=== PATIENT | male | born 1955 | race Caucasian/White ===

== ENCOUNTER 2019-11-28 18:40 | Inpatient (IN) | payer OTHER ==
[~2019-11-28] VITALS: Ht 172.7 cm; Wt 73.0 kg
[2019-11-28] MEDS ORDERED: ACETAMINOPHEN 500 MG TABLET PO ONE (19:30)
[2019-11-28] MEDS ORDERED: 0.9% SODIUM CHLORIDE 10 ML SYRINGE IVP PRN (19:30)
[2019-11-28] MEDS ORDERED: SODIUM CHLORIDE 0.9% 1,000 ML IV ONE (19:30)
[2019-11-28] MEDS ORDERED: ACETAMINOPHEN 325 MG TABLET PO PRN ×2 (19:45→20:45)
[2019-11-28] MEDS ORDERED: ONDANSETRON HCL 4 MG/2 ML VIAL IVP PRN ×2 (19:45→20:45)
[2019-11-28] MEDS ORDERED: AZITHROMYCIN 500 MG/NS 250 ML IV ONE (20:00)
[2019-11-28] MEDS ORDERED: CefTRIAXone 1 GM/DEXTROSE 50 ML IV ONE (20:00)
[2019-11-28 20:09] LABS: BASOPHILS % (AUTO) 0.4 % (0.0-2.0); EOSINOPHILS % (AUTO) 0.6 % (1.0-6.0); HEMATOCRIT 45.1 % (41-53); HEMOGLOBIN 15.4 g/dL (13.5-17.5); LYMPHOCYTES # (AUTO) 0.5 K/uL (1.0-4.8); LYMPHOCYTES % (AUTO) 6.8 % (22.0-44.0); MEAN CORPUSCULAR HEMOGLOBIN 32.7 pg (26.0-34.0); MEAN CORPUSCULAR HGB CONC 34.1 G/dL (31.0-37.0); MEAN CORPUSCULAR VOLUME 96 fL (80-100); MONOCYTES # (AUTO) 0.6 K/uL (0.1-1.0); MONOCYTES % (AUTO) 9.6 % (2.0-9.0); NEUTROPHILS # (AUTO) 5.6 K/uL (1.8-7.7); NEUTROPHILS % (AUTO) 82.6 % (40.0-70.0); PLATELET COUNT (AUTO) 273 K/uL (150-450); RED CELL DISTRIBUTION WIDTH 12.4 % (11.5-14.5)
[2019-11-28 20:24] LABS: ANION GAP 9 mmol/L (8-16); CALCIUM, TOTAL 8.5 mg/dL (8.8-10.5); CARBON DIOXIDE 27 mmol/L (22-29); CHLORIDE 101 mmol/L (98-107); CREATININE 1.06 mg/dL (0.60-1.30); GLOMERULAR FILTR. RATE CALC > 60 mL/min (>60); GLUCOSE,RANDOM 163 mg/dL (70-110); POTASSIUM 3.7 mmol/L (3.5-5.1); SODIUM SERUM 137 mmol/L (136-145); UREA NITROGEN, BLOOD 18 mg/dL (7-18)
[2019-11-28 20:29] LABS: D-DIMER 4.13 mg/L FEU (0.00-0.50); INR 1.1 (0.9-1.1); PROTHROMBIN TIME 11.5 SEC (9.4-11.6)
[2019-11-28 20:38] LABS: LACTIC ACID 1.4 mmol/L (0.4-2.0)
[2019-11-28] MEDS ORDERED: BISACODYL 10 MG RECTAL RECTAL SUPPOSITORY PR PRN (20:45)
[2019-11-28] MEDS ORDERED: ZOLPIDEM TARTRATE 5 MG TABLET PO PRN (20:45)
[2019-11-28] MEDS ORDERED: HYDROCODONE/ACETAMINOPHEN 5-325 MG TABLET PO PRN (20:45)
[2019-11-28] MEDS ORDERED: MAGNESIUM HYDROXIDE SUSPENSION 30 ML UDCUP PO PRN (20:45)
[2019-11-28] MEDS ORDERED: MORPHINE SULFATE 2 MG/ML SYRINGE IVP PRN (20:45)
[2019-11-28 20:54] LABS: APPEARANCE,URINE CLEAR (CLEAR); GLUCOSE, URINE (UA) NEGATIVE (NEGATIVE); KETONES,URINE NEGATIVE (NEGATIVE); LEUKOCYTE ESTERASE ,URINE NEGATIVE (NEGATIVE); NITRATE,URINE NEGATIVE (NEGATIVE); OCCULT BLOOD,URINE NEGATIVE (NEGATIVE); PROTEIN,URINE TRACE (NEGATIVE); UROBILINOGEN,URINE >=8.0 mg/dL (<=1.0)
[2019-11-28] MEDS: DOCUSATE SODIUM 100 MG CAPSULE PO SCH (21:00)
[2019-11-28 21:01] LABS: BILIRUBIN,URINE PRELIM. POSITIVE (NEGATIVE)
[2019-11-28 21:04] LABS: ALANINE AMINOTRANSFERASE 31 U/L (12-78); ALBUMIN 2.8 g/dL (3.4-5.0); ALKALINE PHOSPHATASE 40 U/L (46-116); ASPARTATE AMINOTRANSFERASE 26 U/L (15-37); BILIRUBIN,TOTAL 1.4 mg/dL (0.1-1.0); CREATINE KINASE, TOTAL ONLY 42 U/L (39-308); FERRITIN 1973 ng/mL (26-388); LACTATE DEHYDROGENASE 268 U/L (85-227)
[2019-11-28 21:11] LABS: INFLUENZA TYPE A NEGATIVE FOR TYPE A (NEGATIVE); INFLUENZA TYPE B NEGATIVE FOR TYPE B (NEGATIVE)
[2019-11-28] MEDS: THIAMINE 100 MG/ML 2 ML VIAL IVP SCH (21:43)
[2019-11-28] MEDS: ZINC SULFATE 220 MG CAPSULE PO SCH (21:44)
[2019-11-28] MEDS: ASCORBIC ACID 500 MG TABLET PO SCH (21:44)
[2019-11-28 23:34] VITALS: BP 129/84
[2019-11-28] MEDS: ENOXAPARIN SODIUM 30 MG/0.3 ML PF SYRINGE SQ SCH (23:48)
[2019-11-29 05:56] VITALS: BP 123/76
[2019-11-29 07:19] VITALS: BP 126/75
[2019-11-29] MEDS: ZINC SULFATE 220 MG CAPSULE PO SCH ×2 (09:59→21:56)
[2019-11-29] MEDS: AZITHROMYCIN 500 MG TABLET PO SCH (09:59)
[2019-11-29] MEDS: DOCUSATE SODIUM 100 MG CAPSULE PO SCH ×3 (09:59→21:56)
[2019-11-29] MEDS: ENOXAPARIN SODIUM 30 MG/0.3 ML PF SYRINGE SQ SCH ×2 (09:59→21:57)
[2019-11-29] MEDS: THIAMINE 100 MG/ML 2 ML VIAL IVP SCH ×2 (09:59→21:57)
[2019-11-29] MEDS: ASCORBIC ACID 500 MG TABLET PO SCH ×3 (09:59→21:56)
[2019-11-29] MEDS: PANTOPRAZOLE SODIUM 40 MG DR TABLET PO SCH (10:00)
[2019-11-29 10:34] LABS: ALANINE AMINOTRANSFERASE 30 U/L (12-78); ALBUMIN 2.6 g/dL (3.4-5.0); ALKALINE PHOSPHATASE 39 U/L (46-116); ANION GAP 9 mmol/L (8-16); ASPARTATE AMINOTRANSFERASE 25 U/L (15-37); BILIRUBIN,TOTAL 1.4 mg/dL (0.1-1.0); CALCIUM, TOTAL 8.2 mg/dL (8.8-10.5); CARBON DIOXIDE 25 mmol/L (22-29); CHLORIDE 103 mmol/L (98-107); CREATININE 0.86 mg/dL (0.60-1.30); FERRITIN 1971 ng/mL (26-388); GLOMERULAR FILTR. RATE CALC > 60 mL/min (>60); GLUCOSE,RANDOM 96 mg/dL (70-110); LACTATE DEHYDROGENASE 251 U/L (85-227); POTASSIUM 4.3 mmol/L (3.5-5.1); SODIUM SERUM 137 mmol/L (136-145); TOTAL PROTEIN, SERUM 6.8 g/dL (6.4-8.2); UREA NITROGEN, BLOOD 19 mg/dL (7-18)
[2019-11-29 10:49] VITALS: BP 122/76
[2019-11-29] MEDS: HYDROXYCHLOROQUINE SULFATE 200 MG TABLET PO SCH ×2 (11:57→21:56)
[2019-11-29 12:07] LABS: D-DIMER 3.22 mg/L FEU (0.00-0.50)
[2019-11-29 12:10] LABS: ABG A-A DIFF O2 97.7 mmHg (10-20.0); ABG BASE EXCESS 2.4 mmol/L (-2.0-3.0); ABG CARBOXYHEMOGLOBIN 1.3 % (0.0-1.5); ABG HCO3 26.9 mmol/L (22.0-26.0); ABG METHEMOGLOBIN 0.3 % (0.0-1.5); ABG OXYGEN CONTENT 20.4 mL/dL (15.0-23.0); ABG OXYGEN SATURATION 93.3 % (95.0-98.0); ABG OXYHEMOGLOBIN 91.8 % (94.0-100.0); ABG PCO2 34 mmHg (35-45); ABG PH 7.492 (7.35-7.450); ABG TOTAL HEMOGLOBIN 15.8 G/dL (12.0-18.0); PO2, ARTERIAL BG 61.3 mmHg (79.0-87.0); SOURCE, BLOOD GAS ARTERIAL; TEMPERATURE, FAHRENHEIT, BG 98.8 FAHREN (96.0-98.6)
[2019-11-29 12:12] LABS: O2 DEVICE,BLOOD GAS CANNULA (ROOM AIR); SITE, BLOOD GAS LFT RADIAL
[2019-11-29 15:32] VITALS: BP 126/72
[2019-11-29 21:23] VITALS: BP 104/63
[2019-11-30 00:02] VITALS: BP 105/74
[2019-11-30 06:03] VITALS: BP 99/67
[2019-11-30 07:26] LABS: BASOPHILS % (AUTO) 0.7 % (0.0-2.0); EOSINOPHILS % (AUTO) 2.6 % (1.0-6.0); HEMATOCRIT 46.5 % (41-53); HEMOGLOBIN 15.8 g/dL (13.5-17.5); LYMPHOCYTES # (AUTO) 0.8 K/uL (1.0-4.8); LYMPHOCYTES % (AUTO) 13.3 % (22.0-44.0); MEAN CORPUSCULAR VOLUME 97 fL (80-100); MONOCYTES # (AUTO) 0.8 K/uL (0.1-1.0); NEUTROPHILS # (AUTO) 4.1 K/uL (1.8-7.7); NEUTROPHILS % (AUTO) 70.4 % (40.0-70.0); PLATELET COUNT (AUTO) 325 K/uL (150-450); RED BLOOD CELL COUNT(AUTO) 4.78 MIL/uL (4.50-5.90); RED CELL DISTRIBUTION WIDTH 12.5 % (11.5-14.5)
[2019-11-30] MEDS: DOCUSATE SODIUM 100 MG CAPSULE PO SCH ×2 (09:00→20:22)
[2019-11-30] MEDS: ASCORBIC ACID 500 MG TABLET PO SCH ×3 (10:28→20:22)
[2019-11-30] MEDS: THIAMINE 100 MG/ML 2 ML VIAL IVP SCH ×2 (10:28→20:21)
[2019-11-30] MEDS: PANTOPRAZOLE SODIUM 40 MG DR TABLET PO SCH (10:29)
[2019-11-30] MEDS: ENOXAPARIN SODIUM 30 MG/0.3 ML PF SYRINGE SQ SCH ×2 (10:29→20:20)
[2019-11-30] MEDS: HYDROXYCHLOROQUINE SULFATE 200 MG TABLET PO SCH ×2 (10:29→20:22)
[2019-11-30] MEDS: AZITHROMYCIN 500 MG TABLET PO SCH (10:29)
[2019-11-30] MEDS: ZINC SULFATE 220 MG CAPSULE PO SCH ×2 (10:29→20:22)
[2019-11-30 10:50] VITALS: BP 109/72
[2019-11-30 12:49] VITALS: BP 115/78
[2019-11-30 17:00] VITALS: BP 132/86
[2019-11-30 20:10] VITALS: BP 131/78
[2019-12-01 00:29] VITALS: BP 113/72
[2019-12-01 04:15] VITALS: BP 132/68
[2019-12-01 07:42] LABS: BASOPHILS % (AUTO) 0.6 % (0.0-2.0); EOSINOPHILS % (AUTO) 1.5 % (1.0-6.0); HEMATOCRIT 43.9 % (41-53); HEMOGLOBIN 15.2 g/dL (13.5-17.5); LYMPHOCYTES # (AUTO) 0.5 K/uL (1.0-4.8); LYMPHOCYTES % (AUTO) 8.7 % (22.0-44.0); MEAN CORPUSCULAR HEMOGLOBIN 33.4 pg (26.0-34.0); MEAN CORPUSCULAR HGB CONC 34.6 G/dL (31.0-37.0); MEAN CORPUSCULAR VOLUME 97 fL (80-100); MONOCYTES # (AUTO) 0.7 K/uL (0.1-1.0); NEUTROPHILS # (AUTO) 4.8 K/uL (1.8-7.7); NEUTROPHILS % (AUTO) 78.2 % (40.0-70.0); PLATELET COUNT (AUTO) 362 K/uL (150-450); RED BLOOD CELL COUNT(AUTO) 4.54 MIL/uL (4.50-5.90); RED CELL DISTRIBUTION WIDTH 12.4 % (11.5-14.5)
[2019-12-01 07:59] LABS: ALANINE AMINOTRANSFERASE 26 U/L (12-78); ALBUMIN 2.3 g/dL (3.4-5.0); ALKALINE PHOSPHATASE 38 U/L (46-116); ANION GAP 13 mmol/L (8-16); ASPARTATE AMINOTRANSFERASE 22 U/L (15-37); BILIRUBIN,TOTAL 0.7 mg/dL (0.1-1.0); CALCIUM, TOTAL 8.4 mg/dL (8.8-10.5); CARBON DIOXIDE 26 mmol/L (22-29); CHLORIDE 103 mmol/L (98-107); CREATININE 0.86 mg/dL (0.60-1.30); GLOMERULAR FILTR. RATE CALC > 60 mL/min (>60); GLUCOSE,RANDOM 93 mg/dL (70-110); LACTATE DEHYDROGENASE 218 U/L (85-227); POTASSIUM 3.7 mmol/L (3.5-5.1); SODIUM SERUM 142 mmol/L (136-145); TOTAL PROTEIN, SERUM 6.6 g/dL (6.4-8.2); UREA NITROGEN, BLOOD 15 mg/dL (7-18)
[2019-12-01 08:00] VITALS: BP 108/69
[2019-12-01 08:35] LABS: FERRITIN 1238 ng/mL (26-388)
[2019-12-01] MEDS: ENOXAPARIN SODIUM 30 MG/0.3 ML PF SYRINGE SQ SCH ×2 (08:57→21:06)
[2019-12-01] MEDS: THIAMINE 100 MG/ML 2 ML VIAL IVP SCH ×2 (08:57→21:05)
[2019-12-01] MEDS: HYDROXYCHLOROQUINE SULFATE 200 MG TABLET PO SCH ×2 (08:58→21:05)
[2019-12-01] MEDS: ZINC SULFATE 220 MG CAPSULE PO SCH ×2 (08:58→21:05)
[2019-12-01] MEDS: AZITHROMYCIN 500 MG TABLET PO SCH (08:58)
[2019-12-01] MEDS: ASCORBIC ACID 500 MG TABLET PO SCH ×3 (08:58→21:05)
[2019-12-01] MEDS: DOCUSATE SODIUM 100 MG CAPSULE PO SCH ×3 (08:58→21:05)
[2019-12-01] MEDS: PANTOPRAZOLE SODIUM 40 MG DR TABLET PO SCH (08:58)
[2019-12-01 11:49] VITALS: BP 111/65
[2019-12-01 16:33] VITALS: BP 108/72
[2019-12-01 20:18] VITALS: BP 109/68
[2019-12-02 00:11] VITALS: BP 114/73
[2019-12-02 05:27] VITALS: BP 108/70
[2019-12-02] MEDS: ASCORBIC ACID 500 MG TABLET PO SCH ×3 (08:19→21:25)
[2019-12-02] MEDS: ZINC SULFATE 220 MG CAPSULE PO SCH ×2 (08:19→21:25)
[2019-12-02] MEDS: HYDROXYCHLOROQUINE SULFATE 200 MG TABLET PO SCH ×2 (08:19→21:25)
[2019-12-02] MEDS: THIAMINE 100 MG/ML 2 ML VIAL IVP SCH ×2 (08:19→21:25)
[2019-12-02] MEDS: AZITHROMYCIN 500 MG TABLET PO SCH (08:19)
[2019-12-02] MEDS: ENOXAPARIN SODIUM 30 MG/0.3 ML PF SYRINGE SQ SCH (08:19)
[2019-12-02] MEDS: PANTOPRAZOLE SODIUM 40 MG DR TABLET PO SCH (08:19)
[2019-12-02] MEDS: DOCUSATE SODIUM 100 MG CAPSULE PO SCH ×2 (08:19→21:00)
[2019-12-02 08:22] LABS: ANION GAP 9 mmol/L (8-16); C-REACTIVE PROTEIN QUANT 2.45 mg/dL (0.00-0.30); CALCIUM, TOTAL 8.2 mg/dL (8.8-10.5); CARBON DIOXIDE 25 mmol/L (22-29); CHLORIDE 102 mmol/L (98-107); CREATININE 0.83 mg/dL (0.60-1.30); GLOMERULAR FILTR. RATE CALC > 60 mL/min (>60); GLUCOSE,RANDOM 89 mg/dL (70-110); LACTATE DEHYDROGENASE 270 U/L (85-227); POTASSIUM 4.1 mmol/L (3.5-5.1); SODIUM SERUM 136 mmol/L (136-145); UREA NITROGEN, BLOOD 15 mg/dL (7-18)
[2019-12-02 08:52] VITALS: BP 114/67
[2019-12-02 09:21] LABS: FERRITIN 1730 ng/mL (26-388)
[2019-12-02 11:50] VITALS: BP 100/61
[2019-12-02 16:45] VITALS: BP 112/64
[2019-12-02 20:28] VITALS: BP 96/60
[2019-12-02] MEDS: ENOXAPARIN SODIUM 40 MG/0.4 ML PF SYRINGE SQ SCH (21:26)
[2019-12-03 02:15] VITALS: BP 116/79
[2019-12-03 06:32] VITALS: BP 120/80
[2019-12-03 07:46] LABS: BASOPHILS % (AUTO) 0.7 % (0.0-2.0); EOSINOPHILS % (AUTO) 1.2 % (1.0-6.0); HEMATOCRIT 44.6 % (41-53); LYMPHOCYTES # (AUTO) 0.8 K/uL (1.0-4.8); LYMPHOCYTES % (AUTO) 13.7 % (22.0-44.0); MEAN CORPUSCULAR HEMOGLOBIN 32.3 pg (26.0-34.0); MEAN CORPUSCULAR HGB CONC 33.6 G/dL (31.0-37.0); MEAN CORPUSCULAR VOLUME 96 fL (80-100); MONOCYTES # (AUTO) 0.6 K/uL (0.1-1.0); MONOCYTES % (AUTO) 11.3 % (2.0-9.0); NEUTROPHILS # (AUTO) 4.1 K/uL (1.8-7.7); NEUTROPHILS % (AUTO) 73.1 % (40.0-70.0); PLATELET COUNT (AUTO) 381 K/uL (150-450); RED BLOOD CELL COUNT(AUTO) 4.65 MIL/uL (4.50-5.90); RED CELL DISTRIBUTION WIDTH 12.5 % (11.5-14.5)
[2019-12-03 08:18] VITALS: BP 112/68
[2019-12-03 08:40] LABS: ALANINE AMINOTRANSFERASE 101 U/L (12-78); ALBUMIN 2.4 g/dL (3.4-5.0); ALKALINE PHOSPHATASE 41 U/L (46-116); ANION GAP 4 mmol/L (8-16); ASPARTATE AMINOTRANSFERASE 92 U/L (15-37); BILIRUBIN,TOTAL 0.7 mg/dL (0.1-1.0); C-REACTIVE PROTEIN QUANT 1.35 mg/dL (0.00-0.30); CALCIUM, TOTAL 8.4 mg/dL (8.8-10.5); CARBON DIOXIDE 28 mmol/L (22-29); CHLORIDE 102 mmol/L (98-107); CREATININE 0.89 mg/dL (0.60-1.30); FERRITIN 2100 ng/mL (26-388); GLOMERULAR FILTR. RATE CALC > 60 mL/min (>60); GLUCOSE,RANDOM 97 mg/dL (70-110); LACTATE DEHYDROGENASE 210 U/L (85-227); POTASSIUM 4.4 mmol/L (3.5-5.1); SODIUM SERUM 134 mmol/L (136-145); TOTAL PROTEIN, SERUM 6.7 g/dL (6.4-8.2); UREA NITROGEN, BLOOD 16 mg/dL (7-18)
[2019-12-03] MEDS: DOCUSATE SODIUM 100 MG CAPSULE PO SCH ×2 (09:00→20:56)
[2019-12-03] MEDS: PANTOPRAZOLE SODIUM 40 MG DR TABLET PO SCH (10:42)
[2019-12-03] MEDS: THIAMINE 100 MG/ML 2 ML VIAL IVP SCH ×2 (10:42→20:45)
[2019-12-03] MEDS: ZINC SULFATE 220 MG CAPSULE PO SCH ×2 (10:42→20:46)
[2019-12-03] MEDS: ASCORBIC ACID 500 MG TABLET PO SCH ×3 (10:42→20:46)
[2019-12-03] MEDS: HYDROXYCHLOROQUINE SULFATE 200 MG TABLET PO SCH ×2 (10:42→20:45)
[2019-12-03] MEDS: AZITHROMYCIN 500 MG TABLET PO SCH (10:42)
[2019-12-03] MEDS: ENOXAPARIN SODIUM 40 MG/0.4 ML PF SYRINGE SQ SCH ×2 (10:43→20:46)
[2019-12-03 11:13] VITALS: BP 101/65
[2019-12-03 16:03] VITALS: BP 108/56
[2019-12-03 20:29] VITALS: BP 111/77
[2019-12-03] MEDS ORDERED: SODIUM CHLORIDE 0.9% 250 ML IV ONE (21:06)
[2019-12-04 00:56] VITALS: BP 111/77
[2019-12-04 05:21] VITALS: BP 107/71
[2019-12-04 07:42] VITALS: BP 102/65
[2019-12-04 08:58] LABS: ALANINE AMINOTRANSFERASE 133 U/L (12-78); ALBUMIN 2.6 g/dL (3.4-5.0); ALKALINE PHOSPHATASE 44 U/L (46-116); ANION GAP 6 mmol/L (8-16); ASPARTATE AMINOTRANSFERASE 100 U/L (15-37); BILIRUBIN,TOTAL 0.7 mg/dL (0.1-1.0); C-REACTIVE PROTEIN QUANT 0.85 mg/dL (0.00-0.30); CALCIUM, TOTAL 8.6 mg/dL (8.8-10.5); CARBON DIOXIDE 28 mmol/L (22-29); CHLORIDE 102 mmol/L (98-107); CREATININE 0.88 mg/dL (0.60-1.30); GLOMERULAR FILTR. RATE CALC > 60 mL/min (>60); GLUCOSE,RANDOM 94 mg/dL (70-110); LACTATE DEHYDROGENASE 225 U/L (85-227); POTASSIUM 4.5 mmol/L (3.5-5.1); SODIUM SERUM 136 mmol/L (136-145); UREA NITROGEN, BLOOD 16 mg/dL (7-18)
[2019-12-04] MEDS: ASCORBIC ACID 500 MG TABLET PO SCH ×3 (09:00→21:04)
[2019-12-04] MEDS: PANTOPRAZOLE SODIUM 40 MG DR TABLET PO SCH (09:00)
[2019-12-04] MEDS: DOCUSATE SODIUM 100 MG CAPSULE PO SCH ×2 (09:00→21:00)
[2019-12-04] MEDS: ZINC SULFATE 220 MG CAPSULE PO SCH ×2 (09:00→21:04)
[2019-12-04] MEDS: ENOXAPARIN SODIUM 40 MG/0.4 ML PF SYRINGE SQ SCH ×2 (09:00→21:05)
[2019-12-04] MEDS: THIAMINE 100 MG/ML 2 ML VIAL IVP SCH ×2 (09:01→21:04)
[2019-12-04 09:46] LABS: FERRITIN 2157 ng/mL (26-388)
[2019-12-04 11:27] VITALS: BP 96/62
[2019-12-04 16:15] VITALS: BP 98/68
[2019-12-04 20:50] VITALS: BP 103/72
[2019-12-05 00:55] VITALS: BP 101/69
[2019-12-05 04:51] VITALS: BP 101/66
[2019-12-05 06:51] LABS: BASOPHILS % (AUTO) 1.6 % (0.0-2.0); EOSINOPHILS % (AUTO) 0.7 % (1.0-6.0); HEMATOCRIT 45.7 % (41-53); HEMOGLOBIN 15.6 g/dL (13.5-17.5); LYMPHOCYTES % (AUTO) 16.3 % (22.0-44.0); MEAN CORPUSCULAR HEMOGLOBIN 32.7 pg (26.0-34.0); MEAN CORPUSCULAR VOLUME 96 fL (80-100); MONOCYTES # (AUTO) 0.9 K/uL (0.1-1.0); MONOCYTES % (AUTO) 14.3 % (2.0-9.0); NEUTROPHILS % (AUTO) 67.1 % (40.0-70.0); PLATELET COUNT (AUTO) 359 K/uL (150-450); RED BLOOD CELL COUNT(AUTO) 4.75 MIL/uL (4.50-5.90); RED CELL DISTRIBUTION WIDTH 12.6 % (11.5-14.5)
[2019-12-05 07:46] VITALS: BP 106/70
[2019-12-05 08:14] LABS: ALANINE AMINOTRANSFERASE 157 U/L (12-78); ALBUMIN 2.6 g/dL (3.4-5.0); ALKALINE PHOSPHATASE 43 U/L (46-116); ANION GAP 7 mmol/L (8-16); ASPARTATE AMINOTRANSFERASE 99 U/L (15-37); BILIRUBIN,TOTAL 0.6 mg/dL (0.1-1.0); C-REACTIVE PROTEIN QUANT 0.55 mg/dL (0.00-0.30); CALCIUM, TOTAL 8.5 mg/dL (8.8-10.5); CARBON DIOXIDE 30 mmol/L (22-29); CHLORIDE 103 mmol/L (98-107); CREATININE 0.93 mg/dL (0.60-1.30); FERRITIN 2126 ng/mL (26-388); GLOMERULAR FILTR. RATE CALC > 60 mL/min (>60); GLUCOSE,RANDOM 97 mg/dL (70-110); POTASSIUM 4.3 mmol/L (3.5-5.1); SODIUM SERUM 140 mmol/L (136-145); TOTAL PROTEIN, SERUM 6.9 g/dL (6.4-8.2); UREA NITROGEN, BLOOD 17 mg/dL (7-18)
[2019-12-05] MEDS: PANTOPRAZOLE SODIUM 40 MG DR TABLET PO SCH (08:34)
[2019-12-05] MEDS: ZINC SULFATE 220 MG CAPSULE PO SCH (08:35)
[2019-12-05] MEDS: ASCORBIC ACID 500 MG TABLET PO SCH (08:35)
[2019-12-05] MEDS: ENOXAPARIN SODIUM 40 MG/0.4 ML PF SYRINGE SQ SCH (08:35)
[2019-12-05] MEDS: THIAMINE 100 MG/ML 2 ML VIAL IVP SCH (08:35)
[2019-12-05] MEDS: DOCUSATE SODIUM 100 MG CAPSULE PO SCH (09:00)
[2019-12-05 11:11] VITALS: BP 116/77
== END 2019-12-05 16:30 | disposition home or self-care (01) | DRG 177 ==
LOC: EMS 18:41 → 5S 20:35
PROVIDERS: ADMIT Internal Medicine; ATTEND Internal Medicine
DX: U07.1 COVID-19 (principal); J96.01 Acute respiratory failure with hypoxia; J12.89 Other viral pneumonia; D68.69 Other thrombophilia; Z78.9 Other specified health status
CPT/HCPCS: 82728; 82805; 83605; 83615; 84145; 85379; 85384; 86140; 86850; 86900; 86901; 87040; 87804; 93005; G0378; J0456; J0696; J1650; J3411; J7030; J7050

== ENCOUNTER 2021-04-23 07:06 | Day surgery (SDC) | payer MEDICARE ==
[~2021-04-23] VITALS: Ht 172.7 cm; Wt 78.6 kg
[~2021-04-23 07:06] MED LIST: CeFAZolin 2 GM/DEXTROSE 50 ML IV ONE; MetroNIDAZOLE 500 MG/NACL 100 ML IV ONE; RINGERS SOLUTION,LACTATED 1,000 ML IV ONE
[2021-04-23] MEDS ORDERED: CeFAZolin 2 GM/DEXTROSE 50 ML IV ONE (07:11)
[2021-04-23] MEDS ORDERED: MetroNIDAZOLE 500 MG/NACL 100 ML IV ONE (07:11)
[2021-04-23] MEDS ORDERED: IOHEXOL 240 MG/ML 20 ML VIAL ONE (07:27)
[2021-04-23] MEDS ORDERED: SODIUM CL IRRIG SOLN BAG 0 ML IRRIG ONE (07:27)
[2021-04-23] MEDS ORDERED: LIDOCAINE 2%/EPI 1:200,000/PF 20 ML VIAL ONE (07:27)
[2021-04-23] MEDS ORDERED: BUPIVACAINE HCL/PF 0.5% 30 ML VIAL ONE (07:27)
[2021-04-23 07:45] LABS: COVID AG,FIA SOURCE NASOPHARYNGEAL
[2021-04-23 07:57] LABS: ANION GAP 6 mmol/L (8-16); CALCIUM, TOTAL 9.3 mg/dL (8.8-10.5); CARBON DIOXIDE 32 mmol/L (22-29); CHLORIDE 102 mmol/L (98-107); CREATININE 0.85 mg/dL (0.60-1.30); GLOMERULAR FILTR. RATE CALC > 60 mL/min (>60); GLUCOSE,RANDOM 101 mg/dL (70-110); POTASSIUM 4.4 mmol/L (3.5-5.1); SODIUM SERUM 140 mmol/L (136-145); UREA NITROGEN, BLOOD 16 mg/dL (7-18)
[2021-04-23 08:04] LABS: BASOPHILS % (AUTO) 1.6 % (0.0-2.0); EOSINOPHILS % (AUTO) 3.1 % (1.0-6.0); HEMATOCRIT 53.9 % (41-53); HEMOGLOBIN 18.3 g/dL (13.5-17.5); LYMPHOCYTES # (AUTO) 1.3 K/uL (1.0-4.8); LYMPHOCYTES % (AUTO) 30.3 % (22.0-44.0); MEAN CORPUSCULAR HEMOGLOBIN 32.6 pg (26.0-34.0); MEAN CORPUSCULAR HGB CONC 33.9 G/dL (31.0-37.0); MEAN CORPUSCULAR VOLUME 96 fL (80-100); MONOCYTES # (AUTO) 0.5 K/uL (0.1-1.0); MONOCYTES % (AUTO) 12.5 % (2.0-9.0); NEUTROPHILS # (AUTO) 2.2 K/uL (1.8-7.7); NEUTROPHILS % (AUTO) 52.5 % (40.0-70.0); PLATELET COUNT (AUTO) 159 K/uL (150-450); RED CELL DISTRIBUTION WIDTH 13.4 % (11.5-14.5)
[2021-04-23 08:07] LABS: ALANINE AMINOTRANSFERASE 22 U/L (12-78); ALBUMIN 4.3 g/dL (3.4-5.0); ALKALINE PHOSPHATASE 59 U/L (46-116); ASPARTATE AMINOTRANSFERASE 22 U/L (15-37); BILIRUBIN,TOTAL 2.1 mg/dL (0.1-1.0); TOTAL PROTEIN, SERUM 7.9 g/dL (6.4-8.2)
[2021-04-23] MEDS ORDERED: RINGERS SOLUTION,LACTATED 1,000 ML IV ONE (10:13)
[2021-04-23] MEDS ORDERED: IBUPROFEN 800 MG TABLET PO PRN (10:15)
[2021-04-23] MEDS ORDERED: ACETAMINOPHEN 500 MG TABLET PO PRN (10:15)
[2021-04-23] MEDS ORDERED: FentaNYL CITRATE PF 100 MCG/2 ML VIAL IVP PRN (10:30)
[2021-04-23] MEDS ORDERED: MEPERIDINE-PF 25 MG/ML VIAL IVP PRN (10:30)
[2021-04-23] MEDS ORDERED: HYDROmorphone 2 MG/ML VIAL IVP PRN (10:30)
[2021-04-23] MEDS ORDERED: ONDANSETRON HCL 4 MG/2 ML VIAL IVP ONE (12:00)
[2021-04-23] MEDS ORDERED: MIDAZOLAM HCL 2 MG/2 ML VIAL IVP ONE (12:00)
[2021-04-23] MEDS ORDERED: ROCURONIUM BROMIDE 10 MG/ML 5 ML VIAL IV ONE (12:00)
[2021-04-23] MEDS ORDERED: GLYCOPYRROLATE 0.2 MG/ML VIAL IM ONE (12:00)
[2021-04-23] MEDS ORDERED: LIDOCAINE/PF 2% 5 ML VIAL IM ONE (12:00)
[2021-04-23] MEDS ORDERED: PROPOFOL 1% 20 ML VIAL IVP ONE (12:00)
[2021-04-23] MEDS ORDERED: NEOSTIGMINE METHYLSULFATE 1 MG/ML 10 ML VIAL IVP ONE (12:00)
[2021-04-23] MEDS ORDERED: FentaNYL CITRATE PF 100 MCG/2 ML VIAL IVP ONE (12:00)
[2021-04-23] MEDS ORDERED: OXYGEN THERAPY IH SCH (20:00)
== END 2021-04-23 12:10 | disposition home or self-care (01) ==
LOC: SURGERY 07:06
PROVIDERS: ATTEND Surgery
DX: K80.12 Calculus of gallbladder with acute and chronic cholecystitis without obstruction (principal); I10 Essential (primary) hypertension; E78.5 Hyperlipidemia, unspecified; Z98.890 Other specified postprocedural states; Z20.822 Contact with and (suspected) exposure to COVID-19; Z72.89 Other problems related to lifestyle; Z79.899 Other long term (current) drug therapy; Z82.49 Family history of ischemic heart disease and other diseases of the circulatory system
CPT/HCPCS: 36415; 47562; 80053; 85025; 87426; 88304; 93005; C9803; J0690; J2250; J2405; J2704; J3010; J3490 ×5; J7120; Q9967; Q9966